=== PATIENT | male | born 1945 | race Caucasian/White ===

== ENCOUNTER 2023-08-06 16:49 | Emergency (ER) | payer MEDICARE, SELFPAY ==
--- NOTE | 2023-08-06 16:51 | ED.MALEGU ---
HPI - Male Genitourinary General Chief complaint: Urogenital-Male Stated complaint: blood in urine Time Seen by Provider: 08/06/23 16:51 Source: patient Mode of arrival: ambulatory Limitations: no limitations History of Present Illness HPI Narrative: Pedro is a 69-year-old male patient presenting to the clinic today with complaints of blood in his urine and incontinence x2 days. He reports that he has been taking some azo for his symptoms. He denies any flutter pain or dysuria. Denies any blood clots in his urine. States that his urine is leaking out and he has no control over it. No history of BPH or prostatitis. He denies any fever or chills currently. Related Data Home Medications Medication Instructions Recorded Confirmed atorvastatin 80 mg tablet 80 mg PO DAILY 08/06/23 08/06/23 clopidogrel 75 mg tablet 75 mg PO DAILY 08/06/23 08/06/23 fenofibrate nanocrystallized 145 145 mg PO DAILY 08/06/23 08/06/23 mg tablet Allergies Allergy/AdvReac Type Severity Reaction Status Date / Time No Known Drug Allergies Allergy Unknown Other Verified 08/06/23 17:09 Review of Systems Review of Systems: Pertinent positives per HPI. Patient denies any fever, chills, rash, headache, visual changes, dizziness, cough, runny nose, sore throat, shortness of breath, chest pain, palpitations, nausea, vomiting, diarrhea, constipation, abdominal pain PMFSH Comments At the time of my signature, I reviewed and agree with the nursing past medical, surgical, social, and family history. There is no relevant family history pertinent to the patient complaint. Exam Narrative: General: Well-developed, well nourished, in no apparent distress. Head: Normocephalic, atraumatic. Cardio: Regular rate and rhythm, s1 and s2 normal, no murmur appreciated. Resp: Clear to auscultation bilaterally, no rhonchi, rales, wheezing or rubs. Abdomen: Soft, pliable, bowel sounds present in all quadrants, non-tender to palpation, no organomegly, no CVAT tenderness. Course Course Emergency Course: Portions of this record may have been created with voice recognition software. Level of Care: Express Care Visit Vital Signs Vital signs: Vital Signs Temperature 37.2 C 08/06/23 16:57 Pulse Rate 93 08/06/23 16:57 Respiratory Rate 18 08/06/23 16:57 Blood Pressure 139/63 08/06/23 16:57 Pulse Oximetry 96 08/06/23 16:57 Oxygen Delivery Room Air 08/06/23 16:57 Temperature 37.2 C 08/06/23 16:57 Pulse Rate 93 08/06/23 16:57 Respiratory Rate 18 08/06/23 16:57 Blood Pressure 139/63 08/06/23 16:57 Pulse Oximetry 96 08/06/23 16:57 Oxygen Delivery Room Air 08/06/23 17:05 Vital signs reviewed MDM - Male Genitourinary MDM Narrative Medical decision making narrative: At the time of visit patient is resting comfortably on the exam table. Bladder is nondistended. He does not have any pain to palpation over the bladder however he notes some red blood in his urine without blood clots. He is taking Plavix. States he is having some urinary incontinence that is new for him. UA dip is skewed due to azo. Will send for culture. Will place the patient on Bactrim and have him follow-up with his PCP on Wednesday. Supportive measures were discussed with the patient he voiced understanding. ER precautions were reviewed with the patient he voiced understanding. Differential Diagnosis Differential diagnosis: Likely urinary tract infection, urethritis, epididymitis, prostatitis and acute retention of urine Lab Data Labs: Urine Glucose Trace Reference Range: Negative Urine Glucose Trace Reference Range: Negative Urine Bilirubin 1+ Reference Range: Negative Urine Bilirubin 1+
[2023-08-06 16:57] VITALS: BP 139/63; PULSE 93; RESP 18; TEMP 37.2; O2SAT 96
== END 2023-08-06 17:30 | disposition home or self-care (01) ==
PROVIDERS: Emergency Provider Nurse Practitioner Family; PCP Internal Medicine
DX: N30.01 Acute cystitis with hematuria (principal); E78.00 Pure hypercholesterolemia, unspecified; Z86.73 Personal history of transient ischemic attack (TIA), and cerebral infarction without residual deficits
CPT/HCPCS: 81003; 87077; 87086; 87186; 99213; G0463

== ENCOUNTER 2023-09-25 13:34 | Emergency (ER) | payer MEDICARE, SELFPAY ==
[2023-09-25 13:40] VITALS: PULSE 80; RESP 20; TEMP 37.6; O2SAT 97
[2023-09-25 13:41] VITALS: BP 138/78
--- NOTE | 2023-09-25 14:06 | ED.MALEGU ---
HPI - Male Genitourinary General Chief complaint: Urogenital-Male Stated complaint: Urinary Problems History of Present Illness HPI Narrative: PATIENT PRESENTS WITH URINARY INCONTINENCE AND URGENCY. PATIENT STATES HE HAS A HISTORY OF URINARY TRACT INFECTIONS IS SOME CONCERN THE MIGHT HAVE 1 NOW. PATIENT DENIES ANY GROSS HEMATURIA NO FLANK PAIN NO ABDOMINAL PAIN. Related Data Home Medications Medication Instructions Recorded Confirmed atorvastatin 80 mg tablet 80 mg PO DAILY 08/06/23 08/06/23 clopidogrel 75 mg tablet 75 mg PO DAILY 08/06/23 08/06/23 fenofibrate nanocrystallized 145 145 mg PO DAILY 08/06/23 08/06/23 mg tablet Allergies Allergy/AdvReac Type Severity Reaction Status Date / Time No Known Drug Allergies Allergy Unknown Other Verified 08/06/23 17:09 Review of Systems Review of Systems: CONSTITUTIONAL: DENIES FEVER, CHILLS, OR SWEATS. EYES: DENIES VISUAL CHANGES, REDNESS, OR DISCHARGE. ENT: DENIES RHINORRHEA, CONGESTION, SORE THROAT, OR OTALGIA. CARDIOVASCULAR: DENIES CHEST PAIN, PALPITATIONS, OR EDEMA. RESPIRATORY: DENIES COUGH OR DYSPNEA. GASTROINTESTINAL: DENIES ABDOMINAL PAIN, NAUSEA, VOMITING, OR DIARRHEA. GENITOURINARY: DENIES DYSURIA OR HEMATURIA. SKIN: DENIES RASH OR ITCHING. MUSCULOSKELETAL: DENIES BACK PAIN, JOINT PAIN, OR MYALGIA. NEUROLOGIC: DENIES HEADACHE, NUMBNESS, OR WEAKNESS. PSYCHIATRIC: DENIES ANXIETY OR DEPRESSION. PMFSH Comments AT TIME OF SIGNATURE, AGREE WITH NURSING PAST MEDICAL, SURGICAL, SOCIAL AND FAMILY HISTORY. THERE IS NO RELEVANT FAMILY HISTORY PERTINENT TO THE PRESENTING COMPLAINT Exam Narrative: GENERAL: WELL-APPEARING, WELL-NOURISHED, AND IN NO ACUTE DISTRESS. HEAD: NORMOCEPHALIC, ATRAUMATIC. EYES: PERRLA AND EOMI. ENT: NARES CLEAR, NO RHINORRHEA OR EPISTAXIS. MUCOUS MEMBRANES MOIST. NECK: SUPPLE. CHEST: CLEAR TO AUSCULTATION. NO RESPIRATORY DISTRESS. HEART: REGULAR RATE AND RHYTHM. NO MURMUR HEARD. NORMAL PERIPHERAL PULSES. ABDOMEN: SOFT, NONTENDER, NONDISTENDED, NORMAL ACTIVE BOWEL SOUNDS. EXTREMITIES: NORMAL RANGE OF MOTION. NO EDEMA. SKIN: WARM, DRY, NO RASH. NEURO: NO FOCAL DEFICITS. ALERT AND ORIENTED X3. KYLER COMA SCALE EYE OPENING: SPONTANEOUS 4 KYLER COMA SCALE MOTOR: OBEYS COMMANDS 6 KYLER COMA SCALE VERBAL: ORIENTED 5 KYLER COMA SCALE TOTAL 15 Course Course Level of Care: Express Care Visit Vital Signs Vital signs: Vital Signs Temperature 37.6 C 09/25/23 13:40 Pulse Rate 80 09/25/23 13:40 Respiratory Rate 20 09/25/23 13:40 Pulse Oximetry 97 09/25/23 13:40 Oxygen Delivery Room Air 09/25/23 13:40 Temperature 37.6 C 09/25/23 13:40 Pulse Rate 80 09/25/23 13:40 Respiratory Rate 20 09/25/23 13:40 Blood Pressure 138/78 09/25/23 13:41 Pulse Oximetry 97 09/25/23 13:40 Oxygen Delivery Room Air 09/25/23 13:40 PLEASE ALICIA SCHEDULE A FOLLOWUP VISIT WITH YOUR PERSONAL PHYSICIAN FOR FURTHER EVALUATION AND TREATMENT. INCLUDING RECHECK AND DISCUSSION OF YOUR BLOOD PRESSURE. IF YOUR SYMPTOMS PERSIST, CHANGE OR WORSEN SIGNIFICANTLY BEFORE YOU CAN CONTACT YOUR PERSONAL PHYSICIAN THEN PLEASE, WITHOUT DELAY, GO TO THE EMERGENCY DEPARTMENT FOR FURTHER EVALUATION MDM - Male Genitourinary Lab Data Labs: Urine Characteristics Cloudy Discharge Plan Discharge Clinical Impression: Urinary tract infection Patient Disposition: Home, Self-Care Condition: Stable Instructions: Antibiotic Form, Urinary Tract Infection in Men (DC) Additional Instructions: INCREASE FLUIDS ESPECIALLY CRANBERRY JUICE AND WATER AVOID CAFFEINE AND CARBONATED BEVERAGES ANTIBIOTIC DIRECTED MEDICINE DIRECTED--CAUTIONED IT WILL CAUSE YOUR URINE TO BE BRIGHT ORANGE TYLENOL/IBUPROFEN FOR PAIN OR FEVER FOLLOW-UP WITH HER PRIMARY CARE PROVIDER IF FURTHER PROBLEMS OR CONCERNS RECHECK IF YOU HAVE FEVER OVER 101, NAUSEA AND VOMITING -IF YOU HAVE ANY WORSEN
== END 2023-09-25 14:24 | disposition home or self-care (01) ==
PROVIDERS: Emergency Provider Nurse Practitioner Family; PCP Internal Medicine
DX: N39.0 Urinary tract infection, site not specified (principal)
CPT/HCPCS: 81003; 87077; 87086; 87186; 99213; G0463